=== PATIENT | male | born 1985 ===

== ENCOUNTER 2021-04-29 13:31 | Emergency (ER) | payer OTHER, SELFPAY ==
--- NOTE | ~2021-04-29 | CT_ITS ---
EXAMINATION: CT ANGIOGRAM OF THE CHEST WITH AND WITHOUT CONTRAST (CT PULMONARY ANGIOGRAM FOR PE) CLINICAL INFORMATION: Reason for Exam elevated d-dimer. CP/SOB. Recent Covid COMPARISON: Chest x-ray 04/29/2021 TECHNIQUE: Prior to contrast administration, noncontrast localization images were obtained. Subsequently, multidetector volumetric imaging was performed from the thoracic inlet to below the diaphragms following the administration of 85 mL Omnipaque 350 intravenous contrast. No contrast reaction reported Sagittal, coronal, and MIP oblique sagittal reformatted images were obtained on the CT workstation, uploaded to PACS, and reviewed. This CT examination was performed using dose optimization techniques as appropriate, variously including the following: *Automated exposure control *Adjustment of mA and/or kV according to patient size (this includes techniques or standardized protocols for targeted exams where dose is matched to indication/reason for exam; i.e. extremities or head) *Use of iterative reconstruction technique Total exam dose-length product 536 mGy-cm FINDINGS: QUALITY OF STUDY/CONTRAST BOLUS: Satisfactory. PULMONARY ARTERIES: No central or segmental pulmonary emboli. THORACIC AORTA: No aneurysm or dissection. LUNG: Mild mosaic attenuation of lung parenchyma at the dependent lung bases suggesting small airways disease. There is no bronchiectasis. The central bronchial airways are open. No focal consolidation. No interstitial lung disease. PLEURA: No pleural effusion or pneumothorax. MEDIASTINUM: Normal heart size. No pericardial effusion. No hilar or mediastinal lymphadenopathy. No evidence of septal bowing or right heart strain. Thyroid is slightly heterogeneous. No focal thyroid nodule. CHEST WALL/AXILLA: No axillary or internal mammary lymphadenopathy. OSSEOUS STRUCTURES: No acute or suspicious osseous abnormality. UPPER ABDOMEN: Liver is enlarged. No focal lesions seen in the visualized portions of liver, spleen, pancreas, kidneys or the adrenal gland. No reflux of contrast into the hepatic veins to suggest elevated right heart pressures. CT/CT angio chest PE protocol IMPRESSION: 1. No evidence of pulmonary embolism. 2. There is mild mosaic attenuation of lung parenchyma suggesting small airways disease. No evidence of pneumonia. VTE: negative
--- NOTE | ~2021-04-29 | XR_ITS ---
EXAMINATION: XR CHEST CLINICAL INFORMATION: Shortness of breath, chest pain. COMPARISON: Most recent chest radiograph dated 08/15/2008. TECHNIQUE: Frontal view of the chest was obtained. FINDINGS: Mild hypoinflation of the lungs. No focal airspace consolidation. No pleural effusion or pneumothorax. Unremarkable cardiomediastinal silhouette. XR/XR chest 1V IMPRESSION: No acute cardiopulmonary findings.
[2021-04-29 14:14] VITALS: BP 167/108; PULSE 94; RESP 16; TEMP 35.3; O2SAT 99; BMI 45.4
[2021-04-29 16:13] VITALS: BP 153/96; PULSE 76; RESP 18; TEMP 36.4; O2SAT 97
--- NOTE | 2021-04-29 16:25 | ECG_ITS ---
Test Reason : SHORTNESS OF BREATH Blood Pressure : / mmHG Vent. Rate : 084 BPM Atrial Rate : 084 BPM P-R Int : 156 ms QRS Dur : 098 ms QT Int : 378 ms P-R-T Axes : 022 -37 036 degrees QTc Int : 446 ms Normal sinus rhythm Left axis deviation Cannot rule out Anterior infarct , age undetermined Abnormal ECG No previous ECGs available Referred By: Freda Harris Electronically Signed By:LIBRADO SAXENA
[2021-04-29] MEDS: Albuterol Sulfate 90 MCG 8 GM INHALER 4 PUFF INHALE (16:44)
[2021-04-29 16:45] VITALS: PULSE 80; O2SAT 98
[2021-04-29 17:40] LABS: MANUAL DIFF FLAG NO
[2021-04-29 17:42] LABS: Basophils Percent Auto 0.3 % (0-2); Eosinophils Absolute Auto 0.2 X10*3/uL (0.0-0.4); Eosinophils Percent Auto 1.9 % (0-4); Hematocrit 49.4 % (42-52); Hemoglobin 17.2 g/dl (14.0-18.0); Imm Gran Abs Auto 0.04 X10*3/uL (0.00-0.03); Imm Gran Pct Auto 0.4 % (0.0-0.4); Lymphocytes Absolute Auto 3.1 X10*3/uL (1.2-4.9); Lymphocytes Percent Auto 32.2 % (20-40); Mean Corpuscular HGB Conc 34.8 g/dl (31.0-36.0); Mean Corpuscular Hemoglobin 29.3 pg (27.0-33.0); Mean Corpuscular Volume 84.2 fL (80-98); Mean Platelet Volume 11.4 fL (9.4-12.4); Monocytes Absolute Auto 0.5 X10*3/uL (0.1-1.2); Monocytes Percent Auto 5.1 % (2-11); Neutrophils Absolute Auto 5.7 X10*3/uL (2.0-8.3); Neutrophils Percent Auto 60.1 % (45-73); Platelet Count 188 X10*3/uL (160-400); Red Blood Count 5.87 X10*6/uL (4.60-5.80); White Blood Count 9.5 X10*3/uL (4.8-10.8)
[2021-04-29 17:51] LABS: INTERNATIONAL NORM RATIO 1.1 (0.9-1.1); Prothrombin Time 13.5 SEC (10.8-13.0)
[2021-04-29 17:54] LABS: D Dimer 328 NG/ML
[2021-04-29 18:05] LABS: Alanine Aminotransferase 49 U/L (0-40); Albumin Level 4.2 g/dL (3.5-5.0); Alkaline Phosphatase 113 U/L (39-117); Anion Gap 16 (12-20); Aspartate Amino Transferase 24 U/L (5-37); Bilirubin Direct 0.3 mg/dL (0.0-0.5); Bilirubin Total 1.1 mg/dL (0.0-1.0); Blood Urea Nitrogen 13 mg/dL (9-16); Calcium 9.3 mg/dL (8.4-10.2); Carbon Dioxide 22 mmol/L (22-29); Chloride 102 mmol/L (96-108); Creatinine Clr Calc Pharmacy 149.2; Estimated Glomerular Filt Rate > 60; Glucose Random 299 mg/dL (60-115); Magnesium 1.8 mg/dL (1.6-2.6); Potassium 4.5 mmol/L (3.3-5.1); Sodium 135 mmol/L (135-145); Total Protein 6.9 g/dL (6.5-8.0)
[2021-04-29 18:11] LABS: Troponin-I High Sensitivity < 3.5 ng/L (<3.5-35.0)
--- NOTE | 2021-04-29 18:56 | ED.SOB ---
HPI - SOB/Dyspnea General Chief Complaint: Dyspnea Stated Complaint: DIFF BREATHING Time Seen by Provider: 04/29/21 16:16 Source: patient Mode of arrival: ambulatory History of Present Illness HPI Narrative: 35-year-old male with a past medical history of COVID-19 March 11 presenting to the ED complaining of SOB, chest tightness, sore throat, rhinorrhea, diarrhea intermittently since COVID-19, however worsening today. Admits children recently tested positive for COVID-19 last week. Denies fever, chills, LE edema, recent travel, abdominal pain, nausea/vomiting MD elicited complaint: shortness of breath Related Data Allergies Allergy/AdvReac Type Severity Reaction Status Date / Time clindamycin [CLINDAMYCIN] Allergy Unknown HTN, Unverified 08/18/20 16:10 VOMITING, TINGLING From AUGMENTIN Allergy Unknown UNKNOWN Uncoded 08/18/20 16:10 From Augmentin Allergy Unknown UNKNOWN Uncoded 08/18/20 16:10 Review of Systems Review of Systems: Constitutional: No Fever, No Chills, No Night Sweats, +Fatigue, No Malaise ENT/Mouth: No Ear Pain,+ Nasal Congestion, No Sinus Pain, + sore throat, +Rhinorrhea, No Swallowing Difficulty Eyes: No Eye Pain, No Vision Changes Cardiovascular: +Chest Pain, + SOB, No Dyspnea on Exertion, No Orthopnea, No Edema, No Palpitations Respiratory: +Cough, No Sputum, No Wheezing, No Dyspnea Gastrointestinal: No Nausea, No Vomiting, + Diarrhea, No Abdominal pain Genitourinary: No Dysuria, No Urinary Frequency, No Hematuria Musculoskeletal: No joint pain, +Myalgias, No Joint Swelling Skin: No Skin Lesions, No rash Neuro: No Weakness, No Numbness, No Headache Yes all other systems are reviewed and are negative PMFSH Past Medical History Attestation statement: The following information was validated with the patient. Social History Social History Alcohol intake: never Patient Tobacco Use Status: Current everyday Tobacco user Smoked in Last 30 Days: Yes Use of substances other than those prescribed or required for medical reasons: No Advance Directives: Yes Advance Directives Information Provided: Yes Advance Directives on File: No Physical Exam Vital Signs: Vital Signs: Last Vital Signs Temp 97.4 F 04/29/21 19:57 Pulse 83 04/29/21 19:57 Resp 16 04/29/21 19:57 BP 135/82 04/29/21 19:57 Pulse Ox 97 04/29/21 16:13 Body Mass Index 45.4 Const: General: cooperative, healthy appearing and no acute distress Orientation/consciousness: patient oriented x3 Limitations: no limitations HENMT: Head: Yes normal to inspection and Yes atraumatic Ears: hearing grossly normal bilaterally, external ears normal and TM's normal bilaterally General nose exam: Normal external nose present Face and sinus: Yes normal facial exam Eyes: General: appearance normal, both eyes and all related structures EOM: EOMs intact bilaterally Neck: Neck: Yes normal visual inspection and Yes no meningeal signs Resp: Effort & Inspection: normal respiratory effort Auscultation: clear to auscultation bilaterally, no rales, no rhonchi and no wheezes Cardio: Rate: regular rate Heart sounds: S1 normal heart sound present and S2 normal heart sound present GI: Inspection: Yes normal to inspection Palpation (GI): Soft to palpation, nontender, no guarding and not rigid Skin: Rashes: no rashes Wounds: no wounds Neuro: General: patient oriented x3 and no meningeal signs Gait exam (Neuro): Normal gait present Extrem: General: Yes normal to inspection, Yes no pedal edema and Yes no calf tenderness Course Course Course Narrative: -no leukocytosis, D-dimer elevated to 328 > will obtain CTA to rule out PE -glucose 299, no anion gap. Troponin negative XR chest 1V IMPRESSION: No acute cardiopulmonary findings. 2022-- CT angio chest PE protocol IMPRESSION: 1. No evidence of pulmonary embolism. 2. There is mild mosaic attenuation of lung parenchyma suggesting small airways disease. No evidence of pneumonia. VTE: negative >> results discussed with patient including worrisome signs and symptoms and strict return precautions. Patient was supplied with albuterol inhaler in the ED. Is follow-up with PCP. MDM - SOB/Dyspnea MDM Narrative Medical decision making narrative: 35-year-old male with a past medical history of COVID-19 March 11 presenting to the ED complaining of SOB, chest tightness, sore throat, rhinorrhea, diarrhea intermittently since COVID-19, however worsening today. On exam hypertensive, NAD, nontoxic, lungs CTA, no LE edema or calf tenderness. Concern for post COVID-19 residual symptoms vs COVID-19/viral syndrome vs PE. Rule out pneumonia. Plan: EKG, labs, CXR, albuterol, reassess Medical Records Attestation: I reviewed the patient's medical records. Lab Data Attestation: I reviewed the patient's lab results. Result diagrams: 04/29/21 17:08 04/29/21 17:08 Labs: Lab Results 04/29/21 04/29/21 04/29/21 Range/Units 17:08 17:08 17:08 WBC 9.5 (4.8-10.8) X10*3/uL RBC 5.87 H (4.60-5.80) X10*6/uL Hgb 17.2 (14.0-18.0) g/dl Hct 49.4 (42-52) % MCV 84.2 (80-98) fL MCH 29.3 (27.0-33.0) pg MCHC 34.8 (31.0-36.0) g/dl RDW 12.0 (11.0-16.0) % Plt Count 188 (160-400) X10*3/uL MPV 11.4 (9.4-12.4) fL Immature Gran % (Auto) 0.4 (0.0-0.4) % Neut % (Auto) 60.1 (45-73) % Lymph % (Auto) 32.2 (20-40) % [place] % (Auto) 5.1 (2-11) % Eos % (Auto) 1.9 (0-4) % Baso % (Auto) 0.3 (0-2) % Lymph # (Auto) 3.1 (1.2-4.9) X10*3/uL [place] # (Auto) 0.5 (0.1-1.2) X10*3/uL Eos # (Auto) 0.2 (0.0-0.4) X10*3/uL Baso # (Auto) 0.0 (0.0-0.2) X10*3/uL Abs Immat Gran (auto) 0.04 H (0.00-0.03) X10*3/uL Absolute Neuts (auto) 5.7 (2.0-8.3) X10*3/uL Absolute Nucleated RBC 0.000 (0.0-0.012) X10*3/uL Nucleated RBC % (auto) 0.0 (0.0-0.2) /100WBC PT 13.5 H (10.8-13.0) SEC INR 1.1 (0.9-1.1) APTT 34.0 (24.1-38.0) SEC D-Dimer 328 NG/ML Sodium (135-145) mmol/L Potassium (3.3-5.1) mmol/L Chloride (96-108) mmol/L Carbon Dioxide (22-29) mmol/L Anion Gap (12-20) BUN (9-16) mg/dL Creatinine (0.5-1.4) mg/dL Estim Creat Clear Calc Estimated GFR Random Glucose (60-115) mg/dL Calcium (8.4-10.2) mg/dL Magnesium (1.6-2.6) mg/dL Total Bilirubin (0.0-1.0) mg/dL Direct Bilirubin (0.0-0.5) mg/dL AST (5-37) U/L ALT (0-40) U/L Alkaline Phosphatase (39-117) U/L Troponin I High Sens (<3.5-35.0) ng/L Total Protein (6.5-8.0) g/dL Albumin (3.5-5.0) g/dL 04/29/21 04/29/21 Range/Units 17:08 17:08 WBC (4.8-10.8) X10*3/uL RBC (4.60-5.80) X10*6/uL Hgb (14.0-18.0) g/dl Hct (42-52) % MCV (80-98) fL MCH (27.0-33.0) pg MCHC (31.0-36.0) g/dl RDW (11.0-16.0) % Plt Count (160-400) X10*3/uL MPV (9.4-12.4) fL Immature Gran % (Auto) (0.0-0.4) % Neut % (Auto) (45-73) % Lymph % (Auto) (20-40) % [place] % (Auto) (2-11) % Eos % (Auto) (0-4) % Baso % (Auto) (0-2) % Lymph # (Auto) (1.2-4.9) X10*3/uL [place] # (Auto) (0.1-1.2) X10*3/uL Eos # (Auto) (0.0-0.4) X10*3/uL Baso # (Auto) (0.0-0.2) X10*3/uL Abs Immat Gran (auto) (0.00-0.03) X10*3/uL Absolute Neuts (auto) (2.0-8.3) X10*3/uL Absolute Nucleated RBC (0.0-0.012) X10*3/uL Nucleated RBC % (auto) (0.0-0.2) /100WBC PT (10.8-13.0) SEC INR (0.9-1.1) APTT (24.1-38.0) SEC D-Dimer NG/ML Sodium 135 (135-145) mmol/L Potassium 4.5 (3.3-5.1) mmol/L Chloride 102 (96-108) mmol/L Carbon Dioxide 22 (22-29) mmol/L Anion Gap 16 (12-20) BUN 13 (9-16) mg/dL Creatinine 0.91 (0.5-1.4) mg/dL Estim Creat Clear Calc 149.2 Estimated GFR > 60 Random Glucose 299 H (60-115) mg/dL Calcium 9.3 (8.4-10.2) mg/dL Magnesium 1.8 (1.6-2.6) mg/dL Total Bilirubin 1.1 H (0.0-1.0) mg/dL Direct Bilirubin 0.3 (0.0-0.5) mg/dL AST 24 (5-37) U/L ALT 49 H (0-40) U/L Alkaline Phosphatase 113 (39-117) U/L Troponin I High Sens < 3.5 (<3.5-35.0) ng/L Total Protein 6.9 (6.5-8.0) g/dL Albumin 4.2 (3.5-5.0) g/dL Discharge Plan Discharge Clinical Impression: Post-COVID syndrome Patient Disposition: Home, Self-Care Instructions: COVID-19 (Coronavirus Disease 2019) (ED) Additional Instructions: Your blood work was reassuring today in the ED Your CT scan did not show a blood clot however did show inhaler at home as needed You need to follow-up with a primary care doctor You may return to work Take Tylenol and Motrin at home as needed If you develop constant worsening shortness breath, fever, chills, or productive cough return to the ED Referrals: Physician,None [Primary Care Provider] - 2 days Stand Alone Forms: Work/School Release
[2021-04-29] MEDS: iohexoL 350 MG/ML 100 ML INFUS..BTL IV (19:48)
--- NOTE | 2021-04-29 19:55 | PC.NURSE ---
Patient aware of pending results from CT scan. Sitting in bed with family. Drinking water. Offers no complaints.
[2021-04-29 19:57] VITALS: BP 135/82; PULSE 83; RESP 16; TEMP 36.3
== END 2021-04-29 20:57 | disposition home or self-care (01) ==
PROVIDERS: Physician Assistant; Emergency Provider Internal Medicine
DX: B94.8 Sequelae of other specified infectious and parasitic diseases (principal); J02.9 Acute pharyngitis, unspecified; R09.81 Nasal congestion; R19.7 Diarrhea, unspecified; R07.9 Chest pain, unspecified; I10 Essential (primary) hypertension; F17.210 Nicotine dependence, cigarettes, uncomplicated; Z86.16 Personal history of COVID-19
CPT/HCPCS: 36415; 71045; 71275; 80048; 80076; 83735; 84484; 85025; 85379; 85610; 85730; 93005; 94640; 99284; Q9967

== ENCOUNTER 2022-02-08 11:57 | Outpatient (REF) | payer OTHER, SELFPAY ==
[2022-02-08 14:40] LABS: Cholesterol 116 mg/dL; HDL Cholesterol 27 mg/dL; LDL Cholesterol Calculated 62 mg/dl; Triglycerides 138 mg/dL
== END 2022-02-08 11:58 | disposition home or self-care (01) ==
LOC: HO.WFDLDS 11:57
PROVIDERS: Visit Provider Family Medicine
DX: I25.10 Atherosclerotic heart disease of native coronary artery without angina pectoris (principal)
CPT/HCPCS: 36415; 80061

== ENCOUNTER → 2022-03-05 09:41 | Outpatient (BNVA) | payer OTHER, MEDICAID, SELFPAY | PROVIDERS: PCP Family Medicine; Visit Provider Nurse Practitioner Family | DX: R06.83 Snoring (principal); R40.0 Somnolence; E66.01 Morbid (severe) obesity due to excess calories; Z68.42 Body mass index [BMI] 45.0-49.9, adult | CPT/HCPCS: 99202 ==

== ENCOUNTER → 2022-03-08 11:10 | Outpatient (BNVA) | payer OTHER, MEDICAID, SELFPAY | PROVIDERS: PCP Hospitalist; Referring Provider Family Medicine; Visit Provider Internal Medicine | DX: I25.10 Atherosclerotic heart disease of native coronary artery without angina pectoris (principal); I21.4 Non-ST elevation (NSTEMI) myocardial infarction; I25.2 Old myocardial infarction; I10 Essential (primary) hypertension; R07.2 Precordial pain; E11.9 Type 2 diabetes mellitus without complications; E66.01 Morbid (severe) obesity due to excess calories; F17.210 Nicotine dependence, cigarettes, uncomplicated; Z68.42 Body mass index [BMI] 45.0-49.9, adult; Z95.5 Presence of coronary angioplasty implant and graft; Z88.1 Allergy status to other antibiotic agents; Z88.3 Allergy status to other anti-infective agents; Z88.0 Allergy status to penicillin; Z79.82 Long term (current) use of aspirin; Z79.84 Long term (current) use of oral hypoglycemic drugs | CPT/HCPCS: 93005; 99202 ==

== ENCOUNTER → 2022-05-24 20:57 | Outpatient (REF) | payer OTHER, SELFPAY | LOC: HO.SL 20:57 | PROVIDERS: Visit Provider Nurse Practitioner Family | DX: G47.33 Obstructive sleep apnea (adult) (pediatric) (principal); R06.83 Snoring | CPT/HCPCS: 95810 ==

== ENCOUNTER → 2022-05-29 09:34 | Outpatient (REF) | payer OTHER, SELFPAY ==
--- NOTE | 2022-05-29 09:38 | CA_ITS ---
Transthoracic Echocardiogram Patient (Last, First, Middle): Golden Dickinson, Gender: Male Date of : 1985 Age: 36 Procedure Date: 05/29/2022 Procedure Type: Transthoracic Echocardiogram Location: OP Height: 172.72 cm Weight: 127.01 kg BSA: 2.36 m2 Heart Rate: bpm BP: 136 / 80 mmHg Deputy Director: Referring MD: Mason Duke MD Symptoms: I25.10 - Atherosclerotic heart disease of [place] coronary... Study Quality: Technically Difficult/Contrast ECG Rhythm: Sinus Conclusions: - The left ventricular systolic function is mildly decreased. The visually estimated ejection fraction is between 45-50%. - The apical septum and mid anteroseptal segments are hypokinetic. Findings Procedure Information Contrast agent, definity, is being given per protocol without apparent complications. Left Ventricle Normal left ventricular cavity size. There is severely increased left ventricular wall thickness. The left ventricular systolic function is mildly decreased. The visually estimated ejection fraction is between 45-50%. There is evidence of regional wall motion abnormalities. Diastolic function is normal for age. Wall Motion Rest Echo Findings The apical septum and mid anteroseptal segments are hypokinetic. Atria Both atria are normal in size. Aortic Valve There is a normal trileaflet aortic valve. There is no aortic valve stenosis. There is no aortic valve regurgitation. Mitral Valve The mitral valve appears normal. There is no mitral valve regurgitation. There is no mitral valve stenosis. Pulmonic Valve The pulmonic valve is likely normal. Tricuspid Valve Normal tricuspid valve structure. There is trace tricuspid valve regurgitation. There is no evidence of pulmonary hypertension. Great Vessels There is mild dilatation of the ascending aorta measuring 3.70 cm. Venous The inferior vena cava is normal in size. Pericardium/Pleural There is no evidence of pericardial effusion. Prior Study Comparison No prior study available for comparison. Measurements 2D Linear Measurements IVSd: 1.58 0.6-0.9/0.6-1.0 cm LVIDd: 4.67 3.9-5.3/4.2-5.9 cm LVIDd Index: 1.98 2.4-3.2/2.2-3.1 cm/m2 LVIDs: 2.74 2.0-3.6 cm LVPWd: 1.56 0.7-1.1 cm Ao Root: 3.80 2.1-3.5 cm LA Diam: 4.10 2.7-3.8/3.0-4.0 cm LAIDs Index: 1.74 1.5-2.3 cm/m2 LV Mass: 389.51 67-162/88-224 g LV Mass Index: 165.05 43-95/49-115 g/m2 LVOT Diam: 2.30 3.0+(-)1.3 cm 2D Systolic Function EF 4C: 57.00 >55% EF 2C: 48.00 >55% EF BiP: 53.10 >55% Mitral Valve MV Pk E: 0.95 MV PK A: 0.49 MV Decel Time: 185.00 E/A: 1.90 E'Lateral: 12.10 E'Medial: 8.81 E/E' Med: 10.80 E/E' Lat: 7.90 PHT: 54.00 MVA PHT: 4.07 [place]: 5.15 Aortic Valve AoV Pk Roel: 1.09 AoV Mn Roel: 0.79 AoV VTI: 0.28 AoV Pk Grad: 5.00 Aov Mn Grad: 3.00 FAUSTO Cont.VTI: 3.24 LVOT LVOT Pk Roel: 0.91 LVOT Mn Roel: 0.60 LVOT VTI: 0.22 LVOT Pk Grad: 3.00 LVOT Mn Grad: 2.00 LVOT Diam: 2.30 LVOT Area: 4.15 Diastolic Function MV Pk E: 0.95 MV Pk A: 0.49 E/A: 1.90 E'Medial: 8.81 E/E' Med: 10.80 E' Laterial: 12.10 E/E' Lat: 7.90 Right Ventricle TAPSE (mm): 28.10 TVS' Roel: 11.70 Tricuspid Valve TR Pk Roel: 1.56 TR Pk Grad: 10.00 RA Press: 3.00 RVSP: 13.00 Great Vessels Aorta Ao Root-2D: 3.80 2.0-3.7 cm Ao Asc: 3.70 2.1-3.4 cm Pulmonary Valve PV Pk Roel: 0.96 Peak PV Grad: 4.00 Updated in Other Vendor System with Status of Final Mason Duke MD electronically signed on 05/31/2022 1:41:43 PM with status of Final
== END ==
LOC: HO.CARD 09:34
PROVIDERS: Visit Provider Internal Medicine
DX: I25.10 Atherosclerotic heart disease of native coronary artery without angina pectoris (principal)
CPT/HCPCS: 93306; Q9957

== ENCOUNTER 2022-10-30 08:22 | Outpatient (REF) | payer OTHER, SELFPAY ==
[2022-10-30 10:57] LABS: Appearance Urine Turbid; Color Urine Dark Yellow; Glucose Urine UA Negative (Negative); Leukocyte Esterase Urine Trace (Negative); Nitrite Urine Negative (Negative); PH 5.5 (5.0-9.0); Specific Gravity - Urine >= 1.030 (1.005-1.025); UMIC TRIGGER UA YES; Urine Blood Negative (Negative); Urine Ketones Trace mg/dL (Negative); Urine Protein Trace mg/dL (Neg-Trace)
[2022-10-30 10:59] LABS: Bacteria Urine None Seen (None Seen); Hyaline Casts Urine 0-2 /LPF (0-2); RBC Urine 0-2 /HPF (0-2); Squamous Epithelial Cell Urine 0-2 /HPF (0-2)
[2022-10-30 11:31] LABS: Alanine Aminotransferase 44 U/L (0-40); Albumin Level 4.3 g/dL (3.5-5.0); Alkaline Phosphatase 84 U/L (39-117); Anion Gap 16 (12-20); Aspartate Amino Transferase 22 U/L (5-37); Bilirubin Total 0.9 mg/dL (0.0-1.0); Blood Urea Nitrogen 19 mg/dL (9-16); Calcium 9.4 mg/dL (8.4-10.2); Carbon Dioxide 24 mmol/L (22-29); Chloride 103 mmol/L (96-108); Cholesterol 126 mg/dL; Estimated Glomerular Filt Rate > 60; Glucose Fasting 122 mg/dL (60-99); HDL Cholesterol 29 mg/dL; LDL Cholesterol Calculated 66 mg/dl; Potassium 4.1 mmol/L (3.3-5.1); Sodium 139 mmol/L (135-145); TSH reflex Free T4 1.99 uIU/mL (0.32-4.0); Total Protein 6.8 g/dL (6.5-8.0); Triglycerides 157 mg/dL
[2022-10-30 12:44] LABS: Microalbum/Creatinine Ratio Ur 6.1 ug/mg cr
[2022-10-30 13:14] LABS: Estimated Average Glucose 151 mg/dL; Hemoglobin A1c % 6.9 %
[2022-10-30 15:11] LABS: Prostate Specific Antigen Scr 0.39 ng/mL (<0.05-4.0)
== END 2022-10-30 08:23 | disposition home or self-care (01) ==
LOC: HO.10HDL 08:22
PROVIDERS: Visit Provider Family Medicine
DX: Z00.00 Encounter for general adult medical examination without abnormal findings (principal); I10 Essential (primary) hypertension; R73.01 Impaired fasting glucose; Z12.5 Encounter for screening for malignant neoplasm of prostate
CPT/HCPCS: 36415; 80053; 80061; 81001; 82043; 83036; 84153; 84443

== ENCOUNTER → 2022-11-20 09:49 | Outpatient (BNVA) | payer OTHER, SELFPAY | PROVIDERS: PCP Family Medicine; Referring Provider Family Medicine; Visit Provider Internal Medicine | DX: I25.10 Atherosclerotic heart disease of native coronary artery without angina pectoris (principal); I10 Essential (primary) hypertension; E11.8 Type 2 diabetes mellitus with unspecified complications; E66.01 Morbid (severe) obesity due to excess calories; Z68.42 Body mass index [BMI] 45.0-49.9, adult | CPT/HCPCS: 99212 ==

== ENCOUNTER → 2022-11-27 10:36 | Outpatient (BNVA) | payer OTHER, SELFPAY | PROVIDERS: PCP Family Medicine; Visit Provider Physician Assistant | DX: K21.9 Gastro-esophageal reflux disease without esophagitis (principal); E66.01 Morbid (severe) obesity due to excess calories; Z68.42 Body mass index [BMI] 45.0-49.9, adult; I25.2 Old myocardial infarction; Z79.02 Long term (current) use of antithrombotics/antiplatelets; Z79.899 Other long term (current) drug therapy | CPT/HCPCS: 99202; 99212 ==

== ENCOUNTER 2023-02-01 09:41 | Outpatient (REF) | payer OTHER, SELFPAY ==
--- NOTE | ~2023-02-01 | FL_ITS ---
EXAMINATION: FL BARIUM SWALLOW CLINICAL INFORMATION: Gastroesophageal reflux disease without esophagitis. COMPARISON: None TECHNIQUE: Fluoroscopic assessment of the esophagus was performed in various upright and prone obliquities utilizing thin and thick high density barium contrast material and effervescent granules. A 13 mm barium tablet was also utilized. FINDINGS: There is normal oral bolus control and transfer. Normal posterior tilt of the epiglottis with elevation of the hyoid. No cricopharyngeal abnormality. The 13 mm barium tablet was swallowed without difficulty, freely passing through the esophagus and into the stomach without delay. The esophagus was normal in course, caliber, and contour. There was normal distensibility with no fixed segment of narrowing. No focal mucosal abnormality was identified. Mild esophageal dysmotility was observed, demonstrated by slow clearance of contrast through the esophagus with the patient lying down.. Contrast passed freely across the gastroesophageal junction into the stomach. No significant hiatal hernia. Mild gastroesophageal reflux was observed. FLUOROSCOPY TIME: 1.6 minutes DOSE AREA PRODUCT: 31.988 Gy-cm2 (marmolejo-centimeter squared) FL/FL barium swallow IMPRESSION: Mild gastroesophageal reflux noted. Mild esophageal dysmotility seen.
== END 2023-02-01 09:42 | disposition home or self-care (01) ==
LOC: HO.XRAY 09:41
PROVIDERS: PCP Family Medicine; Visit Provider Physician Assistant
DX: K21.9 Gastro-esophageal reflux disease without esophagitis (principal); E66.01 Morbid (severe) obesity due to excess calories
CPT/HCPCS: 74220

== ENCOUNTER → 2023-06-05 13:06 | Outpatient (BNVA) | payer OTHER, SELFPAY | PROVIDERS: PCP Family Medicine; Visit Provider Internal Medicine | DX: I25.10 Atherosclerotic heart disease of native coronary artery without angina pectoris (principal); I10 Essential (primary) hypertension; E11.8 Type 2 diabetes mellitus with unspecified complications; E66.01 Morbid (severe) obesity due to excess calories; Z68.43 Body mass index [BMI] 50.0-59.9, adult | CPT/HCPCS: 93005; 99212 ==

== ENCOUNTER 2024-01-22 09:52 | Outpatient (AMB) | payer OTHER, SELFPAY ==
[2024-01-22 10:11] VITALS: BP 128/72; PULSE 64; TEMP 36.1; BMI 47.6
--- NOTE | 2024-01-22 10:11 | MHC.PC.OV ---
Vital Signs 01/22/24 10:11 Height 5 ft 7 in Weight 304 lb 4 oz BMI 47.6 BP 128/72 Blood Pressure Location Lt brachial Position Sitting Pulse 64 Pulse Source Pulse Oximeter Temp 97 F Temp Source Oral Intake Visit Reasons: Follow up diabetes Intake Note: Patient is here to follow up with diabetes. Allergies clindamycin [CLINDAMYCIN] Allergy (Severe, Verified 01/22/24 10:12) HTN, VOMITING, TINGLING amoxicillin Allergy (Mild, Verified 01/22/24 10:12) hives From AUGMENTIN Allergy (Intermediate, Uncoded 01/22/24 10:12) hives From Augmentin Allergy (Unknown, Uncoded 01/22/24 10:12) UNKNOWN Tobacco use date assessed: 01/22/24 Dental Screening Dental Screen Date: 01/22/24 Did you have a dental visit in the last 12 months?: Yes Did you have a dental problem in the last 6 months where you did not have access to dental care?: No Was dental information given to patient?: Patient has dentist HPI Follow up diabetes HPI Details 38 y/o male presents to f/u diabetes. A1c today 01/22/24 is 8.2%. He is on metformin 500mg, glipizide 5mg. They report he has not been taking farxiga as his insurance had rejected this. [facility] Medical History (Updated 05/09/23 @ 14:20 by Tejas Mcqueen) Ganglion cyst of left groin Morbid obesity Surgical History No pertinent past surgical history Family History Mother No problems noted. Father Mental health disorder Substance use disorder Social History Housing: Apartment Alcohol intake: never Patient Tobacco Use Status: Current everyday Tobacco user Tobacco use type: Cigarette Cigarettes Per Day: 5 e-Cigarette/Vaping Use: Never Used Second Hand Smoke Exposure: No service: No Current occupational status: employed Current occupational exposures/hazards: No Cognitive needs: No Hearing needs: No Vision needs: No Questionnaire Thrive Questionnaire Date Thrive assessed: 08/23/21 CYNDI-7 AMB Questionnaire CYNDI-7 Date CYNDI - 7 assessed: 10/02/22 Source: Developed by Drs. Santiago Garcia, Toya Henry, Marquez Ramos and colleagues, with an educational tere from [employer]. Review of Systems Const Denies chills, Denies fatigue, Denies fever(s), Denies headache(s) and Denies weakness ENT Denies dizziness and Denies headache(s) Card Denies chest pain, Denies lightheadedness, Denies dyspnea and Denies other (Palpitations) Resp Denies cough, Denies dyspnea, Denies wheezing and Denies other ( shortness of breath) Musc Denies numbness and Denies tingling Neuro Denies dizziness, Denies headache(s), Denies numbness, Denies tingling, Denies paresthesias and Denies weakness Psych Denies anxiety and Denies depression Endo Denies fatigue Aller/Immun Denies wheezing Physical exam (Primary Care) Vital Signs: Last Vital Signs Temp 97 F 01/22/24 10:11 Pulse 64 01/22/24 10:11 BP 128/72 01/22/24 10:11 BMI result Body Mass Index 47.6 Tobacco/Smoking Status: Tobacco use Status Tobacco use date assessed 01/22/24 01/22/24 10:22 Patient Tobacco Use Status Current everyday Tobacco 01/22/24 10:22 Tobacco use type Cigarette 01/22/24 10:22 e-Cigarette/Vaping Use Never Used 01/22/24 10:22 Thrive Assessment: Date of Thrive Assessment Date Thrive assessed 08/23/21 01/22/24 10:22 Const General: no acute distress and well developed Nutritional Appearance: well nourished Orientation/consciousness: patient oriented x3 [facility]: Yes normocephalic and Yes atraumatic Eyes General: appearance normal, both eyes and all related structures Pupils: Equal, round and reactive pupils present EOM: EOMs intact bilaterally Resp Effort & Inspection: normal respiratory effort Auscultation: clear to auscultation bilaterally Cardio Rate: regular rate Rhythm: regular rhythm Heart sounds: S1 normal heart sound present, S2 normal heart sound present, no gallops, no murmurs and no rubs Neuro General: patient oriented x3 and gait normal Cranial nerves: Yes Equal, round and reactive pupils present Psych Affect: normal affect Results AMB Hemoglobin A1c AMB Hemoglobin A1c 8.2 % Last Edit by Lydia Vega CMA on 01/22/24 10:35 Results Reviewed Results Reviewed: Laboratory Last Values Hgb A1c (Clinic) 8.2 % (4.0-6.0) H 01/22/24 10:34 Assessment and Plan Assessment & Plan (1) Type 2 diabetes mellitus with unspecified complications: Code(s): E11.8 - Type 2 diabetes mellitus with unspecified complications Plan: Poorly?controlled?diabetes.??A1c?now?8.2%.??Goal?is?less?than?7.0%. Patient?notes?that?his?insurance?changed?and?he?has?been?unable?to?get?this?medication. He?had?significant?improvements?with?this?medication?and?blood?sugar?was?well?controlled.??Had?also?chosen?this?medication?as?he?has?coronary?artery?disease. Will?get?prior?authorization Continue?metformin?and?glipizide. Follow-up?in?1?month (2) Essential hypertension: Code(s): I10 - Essential (primary) hypertension Plan: Blood?pressure?is?at?goal?of?less?than?130/80 Continue?current?medication Orders: Orders AMB Hemoglobin A1c Today Z13.9 - Encounter for screening, unspecified Microalbumin, Random (w Creat) Today I10 - Essential (primary) hypertension TSH reflex Free T4 Today Z00.00 - Encounter for general adult medical examination without abnormal findings Comprehensive [place]ert[place]. Panel Fast Today Z00.00 - Encounter for general adult medical examination without abnormal findings Lipid Panel Today Z00.00 - Encounter for general adult medical examination without abnormal findings UA and rflx microscopic Today Z00.00 - Encounter for general adult medical examination without abnormal findings Medications: Changed From dapagliflozin propanediol (Farxiga) 5 mg PO QAM E11.65 - Type 2 diabetes mellitus with hyperglycemia, I25.10 - Atherosclerotic heart disease of [place] coronary artery without angina pectoris To dapagliflozin propanediol (Farxiga) 5 mg PO QAM 90 days 90 tabs 3RF E11.65 - Type 2 diabetes mellitus with hyperglycemia, I25.10 - Atherosclerotic heart disease of [place] coronary artery without angina pectoris Refilled metformin 500 mg PO TID 3 months 270 tabs 0RF famotidine 20 mg PO BEDTIME 90 days 30 tabs 3RF blood sugar diagnostic (FreeStyle Lite Strips) Glucose monitoring twice a day and daily as needed 100 ea 3RF E11.65 - Type 2 diabetes mellitus with hyperglycemia glipizide ER 5 mg PO DAILY 30 tabs 2RF Coding Level of Care Code Est Pt Level 3 (60349) Diagnoses Type 2 diabetes mellitus with unspecified complications E11.8 Essential hypertension I10
== END 2024-01-22 11:07 | disposition home or self-care (01) ==
PROVIDERS: PCP Family Medicine; Visit Provider Family Medicine
DX: E11.65 Type 2 diabetes mellitus with hyperglycemia (principal); I10 Essential (primary) hypertension; F17.210 Nicotine dependence, cigarettes, uncomplicated
CPT/HCPCS: 83036; 99213

== ENCOUNTER 2024-02-26 11:36 | Outpatient (AMB) | payer OTHER, SELFPAY ==
[2024-02-26 11:46] VITALS: BP 120/70; PULSE 79; O2SAT 97; BMI 47.5
--- NOTE | 2024-02-26 11:46 | A.OFFPC_ITS ---
Vital Signs 02/26/24 11:46 Height 5 ft 7 in Weight 303 lb 4 oz BMI 47.5 BP 120/70 Blood Pressure Location Lt brachial Position Sitting Pulse 79 Pulse Source Pulse Oximeter Pulse Oximetry (%) 97 Oxygen Delivery Method Room Air Intake Visit Reasons: f/u diabetes Intake Note: Patient is here to follow up on diabe Allergies clindamycin [CLINDAMYCIN] Allergy (Severe, Verified 02/26/24 11:47) HTN, VOMITING, TINGLING amoxicillin Allergy (Mild, Verified 02/26/24 11:47) hives From AUGMENTIN Allergy (Intermediate, Uncoded 02/26/24 11:47) hives From Augmentin Allergy (Unknown, Uncoded 02/26/24 11:47) UNKNOWN Medication List - Last Reconciled 02/26/24 by Talon Lindsey MD aspirin 81 mg PO DAILY 90 days atorvastatin 80 mg PO BEDTIME 90 days blood pressure kit-extra large As directed blood sugar diagnostic (FreeStyle Lite Strips) Glucose monitoring twice a day and daily as needed blood-glucose meter (FreeStyle Lite Meter kit) blood sugar checks twice a day and daily as needed calcium carbonate (Tums) 200 mg PO TID PRN carvedilol 6.25 mg PO BID 90 days dapagliflozin propanediol (Farxiga) 5 mg PO QAM 90 days famotidine 20 mg PO BEDTIME 90 days glipizide ER 5 mg PO DAILY lancets (FreeStyle Lancets) Glucose monitoring b.i.d. and daily p.r.n. lidocaine 5% 1 patch topical DAILY 30 days losartan 50 mg PO DAILY 90 days meclizine 12.5 mg PO TID PRN 10 days metformin 500 mg PO TID 3 months nmrmhecy-ufo-elkjt-vit K-lycop 400-20-370 mcg (Men's 50 Plus Multivitamin) 1 tab PO DAILY nitroglycerin 0.4 mg sublingual Q5M PRN omeprazole 40 mg PO DAILY 30 days Tobacco use date assessed: 01/22/24 HPI f/u diabetes HPI Details 38 y/o male presents to f/u diabetes. Last A1c 05/09/23 5.6%. He is on metformin 500mg t.i.d, Farxiga 5mg and glipizide 5mg. He reports he has switched insurance and states he has been having difficulties with Farxiga due to this. Follows-up with cardiology for atherosclerotic cardiovascular disease. A1c 01/22/24 8.2%. [facility]LY [facility] Medical History (Updated 05/09/23 @ 14:20 by Tejas Mcqueen) Ganglion cyst of left groin Morbid obesity Surgical History No pertinent past surgical history Family History Mother No problems noted. Father Mental health disorder Substance use disorder Social History Housing: Apartment Alcohol intake: never Patient Tobacco Use Status: Current everyday Tobacco user Tobacco use type: Cigarette Cigarettes Per Day: 5 e-Cigarette/Vaping Use: Never Used Second Hand Smoke Exposure: No service: No Current occupational status: employed Current occupational exposures/hazards: No Cognitive needs: No Hearing needs: No Vision needs: No Questionnaire Thrive Questionnaire Date Thrive assessed: 08/23/21 CYNDI-7 AMB Questionnaire CYNDI-7 Date CYNDI - 7 assessed: 10/02/22 Source: Developed by Drs. Santiago Garcia, Toya Henry, Marquez Ramos and colleagues, with an educational tere from [employer]. Review of Systems Const Denies chills, Denies fatigue, Denies fever(s), Denies headache(s) and Denies weakness ENT Denies dizziness and Denies headache(s) Card Denies dyspnea Resp Denies cough, Denies dyspnea, Denies wheezing and Denies other (shortness of breath) Musc Denies numbness and Denies tingling Neuro Denies dizziness, Denies headache(s), Denies numbness, Denies tingling and Denies weakness Psych Denies anxiety and Denies depression Endo Denies fatigue Aller/Immun Denies wheezing Physical exam (Primary Care) Vital Signs: Last Vital Signs Pulse 79 02/26/24 11:46 BP 120/70 02/26/24 11:46 Pulse Ox 97 02/26/24 11:46 Oxygen Delivery Method Room Air 02/26/24 11:46 BMI result Body Mass Index 47.5 Tobacco/Smoking Status: Tobacco use Status Tobacco use date assessed 01/22/24 01/22/24 10:22 Patient Tobacco Use Status Current everyday Tobacco 01/22/24 10:22 Tobacco use type Cigarette 01/22/24 10:22 e-Cigarette/Vaping Use Never Used 01/22/24 10:22 Thrive Assessment: Date of Thrive Assessment Date Thrive assessed 08/23/21 01/22/24 10:22 Const General: well developed; No acute distress Nutritional Appearance: obese morbidly obese Orientation/consciousness: patient oriented x3 HENMT Head: Yes normocephalic and Yes atraumatic Eyes General: appearance normal, both eyes and all related structures Pupils: Equal, round and reactive pupils present EOM: EOMs intact bilaterally Resp Effort & Inspection: normal respiratory effort Neuro General: patient oriented x3 and gait normal Cranial nerves: Yes Equal, round and reactive pupils present Psych Affect: normal affect Assessment and Plan Assessment & Plan (1) Type 2 diabetes mellitus with unspecified complications: Code(s): E11.8 - Type 2 diabetes mellitus with unspecified complications Plan: Diabetes?at?last?check?was?poorly/uncontrolled?after?his?insurance?company?denie d?Farxiga?which?he?had?been?stable?on. He?has?been?unable?to?obtain?this?medication Will?have?MA get?prior?authorization. Patient?has?diabetes?which?was?previously?stable?with?Farxiga.??He?is?also?using ?metformin?and?glipizide.??He?has?coronary?artery?disease?which?is?another?compe lling?reason?to?use?Farxiga. While?awaiting?prior?authorization,?he?will?increase?glipizide?from?5?mg?to?10?m g?daily?and?continue?metformin Will?have?him?return?in?a?month?for?close?follow-up.??I?have?asked?him?to ?let?me?know before?that?visit?if?he?is?unable?to?get?Farxiga (2) Essential hypertension: Code(s): I10 - Essential (primary) hypertension Plan: Blood?pressure?is?controlled Goal?is?less?than?140/90 Continue?current?medication (3) Coronary artery disease: Code(s): I25.10 - Atherosclerotic heart disease of [place] coronary artery without angina pectoris Plan: Stable Coding Level of Care Code Est Pt Level 4 (65693) Diagnoses Type 2 diabetes mellitus with unspecified complications E11.8 Essential hypertension I10 Coronary artery disease I25.10
== END 2024-02-26 12:41 | disposition home or self-care (01) ==
PROVIDERS: PCP Family Medicine; Visit Provider Family Medicine
DX: E11.8 Type 2 diabetes mellitus with unspecified complications (principal); I10 Essential (primary) hypertension; I25.10 Atherosclerotic heart disease of native coronary artery without angina pectoris
CPT/HCPCS: 99214

== ENCOUNTER 2024-06-09 09:08 | Outpatient (AMB) | payer OTHER, SELFPAY ==
--- NOTE | 2024-06-09 09:12 | A.OFFVIS_ITS ---
Vital Signs 06/09/24 09:13 Height 5 ft 7 in Weight 298 lb 15.149 oz BMI 46.8 BP 118/70 Blood Pressure Location Lt brachial Position Sitting Pulse 72 Intake Visit Reasons: 1 yr f/up [employer] Professor Required: No Accompanied by: Spouse Allergies clindamycin [CLINDAMYCIN] Allergy (Severe, Verified 02/26/24 11:47) HTN, VOMITING, TINGLING amoxicillin Allergy (Mild, Verified 02/26/24 11:47) hives From AUGMENTIN Allergy (Intermediate, Uncoded 02/26/24 11:47) hives From Augmentin Allergy (Unknown, Uncoded 02/26/24 11:47) UNKNOWN Medication List - Last Reconciled 06/09/24 by Mason Duke MD aspirin 81 mg PO DAILY 90 days atorvastatin 80 mg PO BEDTIME 90 days blood pressure kit-extra large As directed blood sugar diagnostic (FreeStyle Lite Strips) Glucose monitoring twice a day and daily as needed blood-glucose meter (FreeStyle Lite Meter kit) blood sugar checks twice a day and daily as needed calcium carbonate (Tums) 200 mg PO TID PRN carvedilol 6.25 mg PO BID 90 days famotidine 20 mg PO BEDTIME 90 days glipizide ER 5 mg PO DAILY lancets (FreeStyle Lancets) Glucose monitoring b.i.d. and daily p.r.n. losartan 50 mg PO DAILY 90 days meclizine 12.5 mg PO TID PRN 10 days metformin 500 mg PO TID 3 months ferdapnj-zuj-wzvga-vit K-lycop 400-20-370 mcg (Men's 50 Plus Multivitamin) 1 tab PO DAILY nitroglycerin 0.4 mg sublingual Q5M PRN omeprazole 40 mg PO DAILY 30 days HPI Comments Details: Golden returns for follow-up regarding coronary disease. To recall, he has a history of type 2 diabetes, hypertension, obesity. He had NSTEMI in December 2021. Underwent cardiac catheterization LAD stenting. He states that in the last year, no new concerns. He has been doing fine. Unfortunately has not been able to lose much weight. He states that because of insurance reasons he was not taking medications for a while but now back on everything. [facility] Medical History (Updated 05/09/23 @ 14:20 by Tejas Mcqueen) Ganglion cyst of left groin Morbid obesity Surgical History No pertinent past surgical history Family History Mother No problems noted. Father Mental health disorder Substance use disorder Social History Housing: Apartment Alcohol intake: never Patient Tobacco Use Status: Current everyday Tobacco user Tobacco use type: Cigarette Cigarettes Per Day: 5 e-Cigarette/Vaping Use: Never Used Second Hand Smoke Exposure: No service: No Current occupational status: employed Current occupational exposures/hazards: No Cognitive needs: No Hearing needs: No Vision needs: No Review of Systems Const All systems reviewed & are unremarkable except as noted in HPI and below Denies chills, Denies fatigue, Denies fever(s), Denies weight gain and Denies weight loss Eyes Reports as per HPI and Denies no additional complaints ENT Denies no additional complaints and Reports as per HPI Card Denies chest pain, Denies leg edema, Denies lightheadedness, Denies palpitations, Denies dyspnea on exertion and Denies orthopnea Resp Denies cough and Denies dyspnea on exertion GI Reports melena, Denies hematochezia and Denies change in stool character Reports no additional complaints and Reports as per HPI Musc Denies muscle weakness and Denies radiating pain into limb Skin/Breast Reports system reviewed and no additional complaints, except as documented Neuro Reports no additional complaints and Reports as per HPI Psych Reports no additional complaints and Reports as per HPI Endo Denies fatigue and Denies palpitations Tim/Lymph Reports no additional complaints and Reports as per HPI Aller/Immun Reports no additional complaints and Reports as per HPI Physical Exam Vital Signs: Last Vital Signs Pulse 72 06/09/24 09:13 BP 118/70 06/09/24 09:13 BMI result Body Mass Index 46.8 Const General: comfortable and no acute distress Orientation/consciousness: patient oriented x3 HEENT Other: Unremarkable Head: Yes normal to inspection Neck Neck: Yes normal visual inspection Chest Chest palpation & inspection: normal inspection of the chest Resp Auscultation: clear to auscultation bilaterally Cardio Palpation: normal PMI Heart sounds: S1 normal heart sound present, S2 normal heart sound present, no gallops, no murmurs and no rubs GI Palpation (GI): Soft to palpation Back/Spine/Pelvis Other: unremarkable Skin General skin exam: no rashes or lesions noted Neuro General: patient oriented x3 Extrem General: Yes normal to inspection Psych Mental Status: mental status grossly normal Office Procedures EKG Details: EKG with sinus rhythm at 72/Min; low voltage QRS complexes; old septal infarct; lateral T inversions and overall similar to prior. [id number], Complete Assessment & Plan Assessment & Plan (1) Atherosclerotic cardiovascular disease: Code(s): I25.10 - Atherosclerotic heart disease of [place] coronary artery without angina pectoris Category: Medical Plan: Cardiac catheterization data -12/2021. Mid LAD 100% stenosis- s/p NAYAN. No significant disease elsewhere. [place] [facility] [place]VEF [place] 45-50% and LAD wall motion abnormality. Repe at echocardiogram similar. Continue aspirin. Continue beta-blockers and statins. Lipids are well controlled. Last LDL 66 mg/dL. (2) Type 2 diabetes mellitus with unspecified complications: Code(s): E11.8 - Type 2 diabetes mellitus with unspecified complications Category: Medical Plan: Hemoglobin A1c levels have been up and down. Most recently 8.2%. Prior to that, 5.6%. In the past, as much as 12.6%. He states that due to insurance issues he has not been taking medications intermittently. On glipizide, metformin. (3) Essential hypertension: Code(s): I10 - Essential (primary) hypertension Category: Medical Plan: Continue carvedilol and losartan. Stable. (4) Morbid obesity: Code(s): E66.01 - Morbid (severe) obesity due to excess calories Category: Medical Plan: Again discussed today. He states he was almost 480 lb in the past and by his own attempts has lost almost 180+ lb. He wants to just keep trying himself. Not interested in bariatric referral. Plan Discussed with significant other. Coding Level of Care Code Est Pt Level 4 (26142) Diagnoses Atherosclerotic cardiovascular disease I25.10 Type 2 diabetes mellitus with unspecified complications E11.8 Essential hypertension I10 Morbid obesity E66.01 CPT Codes EKG - CPT: 30536-[id number], Complete ([id number])
[2024-06-09 09:13] VITALS: BP 118/70; PULSE 72; BMI 46.8
== END 2024-06-09 09:33 | disposition home or self-care (01) ==
PROVIDERS: PCP Family Medicine; Visit Provider Internal Medicine
DX: I25.10 Atherosclerotic heart disease of native coronary artery without angina pectoris (principal); E11.8 Type 2 diabetes mellitus with unspecified complications; I10 Essential (primary) hypertension; E66.01 Morbid (severe) obesity due to excess calories
CPT/HCPCS: 93010; 99214

== ENCOUNTER → 2024-06-09 09:08 | Outpatient (BNVA) | payer OTHER, SELFPAY | PROVIDERS: PCP Family Medicine; Visit Provider Internal Medicine | DX: I25.10 Atherosclerotic heart disease of native coronary artery without angina pectoris (principal); E11.8 Type 2 diabetes mellitus with unspecified complications; I10 Essential (primary) hypertension; E66.01 Morbid (severe) obesity due to excess calories; Z68.42 Body mass index [BMI] 45.0-49.9, adult; Z79.82 Long term (current) use of aspirin; Z79.899 Other long term (current) drug therapy | CPT/HCPCS: 93005; 99212 ==

== ENCOUNTER 2024-12-22 08:40 | Outpatient (AMB) | payer OTHER, SELFPAY ==
--- NOTE | 2024-12-22 08:41 | A.OFFPC_ITS ---
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 A1c was over 8 at last check. He is and he had not been able to get Farxiga due to insurance. We had tried working on a prior authorization. Patient says that he realize that the checks he was being for insurance were being returned and he did not insurance at all. He says he has been taking metformin 500 mg t.i.d. and glipizide 5 mg q.a.m. as prescribed and was pain for these out of pocket. [facility], [facility] Medical History (Updated 12/22/24 @ 09:20 by Talon Lindsey MD) Ganglion cyst of left groin Morbid obesity Surgical History No pertinent past surgical history Family History Mother No problems noted. Father Mental health disorder Substance use disorder Social History Housing: Apartment Alcohol intake: never Patient Tobacco Use Status: Current everyday Tobacco user Tobacco use type: Cigarette Cigarettes Per Day: 5 e-Cigarette/Vaping Use: Never Used Second Hand Smoke Exposure: No service: No Current occupational status: employed Current occupational exposures/hazards: No Cognitive needs: No Hearing needs: No Vision needs: No Questionnaire PHQ-9 Over the last 2 weeks, how often have you been bothered by any of the following problems? 90246 - PHQ-9 Billing: Patient declined-do not bill Source: Developed by Drs. Santiago Garcia, Toya Henry, Marquez Ramos and colleagues, with an educational tere from [employer]. Thrive Questionnaire Date Thrive assessed: 08/23/21 CYNDI-7 AMB Questionnaire CYNDI-7 Date CYNDI - 7 assessed: 10/02/22 Source: Developed by Drs. Santiago Garcia, Toya Henry, Marquez Ramos and colleagues, with an educational tere from [employer]. Review of Systems Const Denies chills, Denies fatigue, Denies fever(s), Denies headache(s) and Denies weakness ENT Denies dizziness and Denies headache(s) Card Denies dyspnea Resp Denies cough, Denies dyspnea, Denies wheezing and Denies other (shortness of breath) Musc Denies numbness and Denies tingling Neuro Denies dizziness, Denies headache(s), Denies numbness, Denies tingling and Denies weakness Psych Denies anxiety and Denies depression Endo Denies fatigue Aller/Immun Denies wheezing Physical exam (Primary Care) Vital Signs: Last Vital Signs Temp 96.1 F L 12/22/24 08:45 Pulse 76 12/22/24 08:45 Resp 14 12/22/24 08:45 BP 158/80 H 12/22/24 08:45 Pulse Ox 99 12/22/24 08:45 Oxygen Delivery Method Room Air 12/22/24 08:45 BMI result Body Mass Index 47.8 Tobacco/Smoking Status: Tobacco use Status Tobacco use date assessed 12/22/24 12/22/24 08:48 Patient Tobacco Use Status Current everyday Tobacco 12/22/24 08:41 Tobacco use type Cigarette 12/22/24 08:41 e-Cigarette/Vaping Use Never Used 12/22/24 08:41 Thrive Assessment: Date of Thrive Assessment Date Thrive assessed 08/23/21 12/22/24 08:41 Const General: well developed; No acute distress Nutritional Appearance: well nourished Orientation/consciousness: patient oriented x3 HENMT Head: Yes normocephalic and Yes atraumatic Eyes General: appearance normal, both eyes and all related structures Pupils: Equal, round and reactive pupils present EOM: EOMs intact bilaterally Resp Effort & Inspection: normal respiratory effort Neuro General: patient oriented x3 and gait normal Cranial nerves: Yes Equal, round and reactive pupils present Psych Affect: normal affect Results AMB Hemoglobin A1c AMB Hemoglobin A1c 9.6 % Last Edit by Michelle Miller MA on 12/22/24 08:58 Results Reviewed Results Reviewed: Laboratory Last Values Hgb A1c (Clinic) 9.6 % (4.0-6.0) H 12/22/24 08:54 Coding Level of Care Code Est Pt Level 4 (02451) Diagnoses Type 2 diabetes mellitus with unspecified complications E11.8 Coronary artery disease I25.10 Essential hypertension I10 Cyst of skin L72.9 Assessment & Plan Assessment & Plan (1) Type 2 diabetes mellitus with unspecified complications: Code(s): E11.8 - Type 2 diabetes mellitus with unspecified complications Category: Medical Plan: A1c?continues?to?climb?as?patient?has?only?been?on?metformin?and?glipizide?and?w as?unable?to?get?additional?medication. He?says?he?now?has?insurance. Given?that?he?also?has?coronary?artery ?disease,?will?work?with?him?more?aggressively?to?get?his?A1c?below?7%. Continue?metformin?glipizide?as?prescribed Start?Lantus?can?units?q.p.m. (2) Coronary artery disease: Code(s): I25.10 - Atherosclerotic heart disease of [place] coronary artery without angina pectoris Category: Medical Plan: Maintain?good?blood?pressure?and?blood?sugar?control. Follow-up?with?Cardiology (3) Essential hypertension: Code(s): I10 - Essential (primary) hypertension Category: Medical Plan: Blood?pressure?improves?with?relaxation. Goal?is?less?than?130/80 Continue?current?medications (4) Cyst of skin: Code(s): L72.9 - Follicular cyst of the skin and subcutaneous tissue, unspecified Category: Medical Plan: Raised cyst of skin under his nose. Will return to [facility] Orders: Orders AMB Hemoglobin A1c Today E11.8 - Type 2 diabetes mellitus with unspecified complications Medications: New insulin glargine (Lantus Solostar U-100 Insulin) 10 units (0.1 mL) subcut QPM 30 days 3 mL 3RF
[2024-12-22 08:45] VITALS: BP 158/80; PULSE 76; RESP 14; TEMP 35.6; O2SAT 99; BMI 47.8
[2024-12-22 09:13] VITALS: BP 126/80
== END 2024-12-22 09:21 | disposition home or self-care (01) ==
PROVIDERS: PCP Family Medicine; Visit Provider Family Medicine
DX: E11.8 Type 2 diabetes mellitus with unspecified complications (principal); I25.10 Atherosclerotic heart disease of native coronary artery without angina pectoris; I10 Essential (primary) hypertension; L72.9 Follicular cyst of the skin and subcutaneous tissue, unspecified

== ENCOUNTER → 2024-12-22 08:40 | Outpatient (BNVA) | payer OTHER, SELFPAY | PROVIDERS: PCP Family Medicine; Visit Provider Family Medicine | DX: E11.8 Type 2 diabetes mellitus with unspecified complications (principal); I25.10 Atherosclerotic heart disease of native coronary artery without angina pectoris; I10 Essential (primary) hypertension; L72.9 Follicular cyst of the skin and subcutaneous tissue, unspecified | CPT/HCPCS: 83036; 99212 ==

== ENCOUNTER 2025-01-27 09:46 | Outpatient (AMB) | payer OTHER, SELFPAY ==
--- NOTE | 2025-01-27 09:56 | MHC.PC.OV ---
Vital Signs 01/27/25 09:59 Height 5 ft 7 in Weight 303 lb 6 oz BMI 47.5 BP 120/74 Blood Pressure Location Lt brachial Position Sitting Respiration 16 Pulse 88 Pulse Source Pulse Oximeter Temp 97.8 F Temp Source Oral Pulse Oximetry (%) 97 Oxygen Delivery Method Room Air Intake Visit Reasons: f/u DM & cyst of skin Intake Note: follow up on dm and facial cyst Network Infrastructure Architect Required: No Allergies clindamycin [CLINDAMYCIN] Allergy (Severe, Verified 01/27/25 09:57) HTN, VOMITING, TINGLING amoxicillin Allergy (Mild, Verified 01/27/25 09:57) hives From AUGMENTIN Allergy (Intermediate, Uncoded 02/26/24 11:47) hives From Augmentin Allergy (Unknown, Uncoded 02/26/24 11:47) UNKNOWN Medication List - Last Reconciled 01/27/25 by Talon Lindsey MD aspirin 81 mg PO DAILY 90 days atorvastatin 80 mg PO BEDTIME 90 days blood pressure kit-extra large As directed blood sugar diagnostic (FreeStyle Lite Strips) Glucose monitoring twice a day and daily as needed blood-glucose meter (FreeStyle Lite Meter kit) blood sugar checks twice a day and daily as needed calcium carbonate (Tums) 200 mg PO TID PRN carvedilol 6.25 mg PO BID 90 days famotidine 20 mg PO BEDTIME 90 days glipizide ER 5 mg PO DAILY insulin glargine (Lantus Solostar U-100 Insulin) 10 units (0.1 mL) subcut QPM 30 days lancets (FreeStyle Lancets) Glucose monitoring b.i.d. and daily p.r.n. losartan 50 mg PO DAILY 90 days meclizine 12.5 mg PO TID PRN 10 days metformin 500 mg PO TID 3 months dyelycqz-gid-iezrs-vit K-lycop 400-20-370 mcg (Men's 50 Plus Multivitamin) 1 tab PO DAILY nitroglycerin 0.4 mg sublingual Q5M PRN omeprazole 40 mg PO DAILY 30 days pen needle, diabetic (Easy Comfort Pen [place]) As directed Tobacco use date assessed: 12/22/24 Dental Screening Dental Screen Date: 01/22/24 HPI f/u DM & cyst of skin HPI Details 39 y/o male presents to f/u diabetes. Last A1c 12/22/24 9.6%. He is on glipizide 5mg, insulin glargine 10 units, metformin 500mg t.i.d. A1c today 9.3%. Has complaints of a facial cyst. Notes he has sleep apnea but is currently not being treated. [facility], [facility] Medical History (Updated 01/27/25 @ 10:23 by Tejas Mcqueen) Ganglion cyst of left groin Morbid obesity Surgical History No pertinent past surgical history Family History Mother No problems noted. Father Mental health disorder Substance use disorder Social History Housing: Apartment Alcohol intake: never Patient Tobacco Use Status: Current everyday Tobacco user Tobacco use type: Cigarette Cigarettes Per Day: 5 e-Cigarette/Vaping Use: Never Used Second Hand Smoke Exposure: No service: No Current occupational status: employed Current occupational exposures/hazards: No Cognitive needs: No Hearing needs: No Vision needs: No Questionnaire PHQ-9 Over the last 2 weeks, how often have you been bothered by any of the following problems? 1. Little interest or pleasure in doing things: not at all 2. Feeling down, depressed, or hopeless: not at all 3. Trouble falling or staying asleep, or sleeping too much: not at all 4. Feeling tired or having little energy: not at all 5. Poor appetite or overeating: not at all 6. Feeling bad about yourself - or that you are a failure or have let yourself or your family down: not at all 7. Trouble concentrating on things, such as reading the newspaper or watching television: not at all 8. Moving or speaking so slowly that other people could have noticed. Or the opposite - being so fidgety or restless that you have been moving around a lot more than usual: not at all 9. Thoughts that you would be better off or of hurting yourself in some way: not at all Total score: 0 Source: Developed by Drs. Santiago Garcia, Toya Henry, Marquez Ramos and colleagues, with an educational tere from [employer]. Thrive Questionnaire Date Thrive assessed: 08/23/21 I am a: Patient What is your living situation today?: I have a steady place to live Within the past 12 months, did the food you bought not last and you didn't have the money to get more?: I choose not to answer this question Within the past 12 months, did you worry whether your food would run out before you got money to buy more?: I choose not to answer this question Do you have trouble paying for medicines?: I choose not to answer this question Do you have trouble getting transportation to medical appointments?: I choose not to answer this question Do you have trouble paying your heating and electricity bill?: I choose not to answer this question Do you have trouble taking care of your child, family member or friend?: I choose not to answer this question Do you have trouble with day-to-day activities such as bathing, preparing meals, shopping, managing finances, etc.?: I choose not to answer this question Are you currently unemployed and looking for a job?: No Are you interested in more education?: No Please select the resources that you would like help with: None Currently or been in a relationship where the following occur: No concerns reported THRIVE Score: 0 AUDIT C Alcohol Use Questionnaire (AUDIT-C) 1. How often do you have a drink containing alcohol?: Never Total Score: 0 CYNDI-7 AMB Questionnaire CYNDI-7 Date CYNDI - 7 assessed: 10/02/22 Feeling nervous, anxious, or on edge: 0 = Not at all Not being able to stop or control worryin = Not at all Worrying too much about different things: 0 = Not at all Trouble relaxin = Not at all Being so restless that it is hard to sit still: 0 = Not at all Becoming easily annoyed or irritable: 0 = Not at all Feeling afraid as if something awful might happen: 0 = Not at all Total CYNDI-7 score (0-4 normal; 5-9 mild; 10-14 moderate; 15-21 severe): 0 Source: Developed by Drs. Santiago Garcia, Toya Henry, Marquez Ramos and colleagues, with an educational tere from [employer]. Physical exam (Primary Care) Vital Signs: Last Vital Signs Temp 97.8 F 01/27/25 09:59 Pulse 88 01/27/25 09:59 Resp 16 01/27/25 09:59 BP 120/74 01/27/25 09:59 Pulse Ox 97 01/27/25 09:59 Oxygen Delivery Method Room Air 01/27/25 09:59 BMI result Body Mass Index 47.5 Tobacco/Smoking Status: Tobacco use Status Tobacco use date assessed 12/22/24 01/27/25 10:02 Patient Tobacco Use Status Current everyday Tobacco 01/27/25 10:02 Tobacco use type Cigarette 01/27/25 10:02 e-Cigarette/Vaping Use Never Used 01/27/25 10:02 PHQ-9: PHQ-9 Score PHQ-9: Total score 0 01/27/25 10:02 Thrive Assessment: Date of Thrive Assessment Date Thrive assessed 08/23/21 01/27/25 10:02 Currently or been in a relationship where the following occur: No concerns reported Const Nutritional Appearance: obese morbidly obese Results AMB Hemoglobin A1c AMB Hemoglobin A1c 9.3 % Last Edit by Mirela Anguiano CMA on 01/27/25 10:05 Results Reviewed Results Reviewed: Laboratory Last Values Hgb A1c (Clinic) 9.3 % (4.0-6.0) H 01/27/25 10:04 Coding Level of Care Code Est Pt Level 4 (74172) Diagnoses Type 2 diabetes mellitus with unspecified complications E11.8 Cyst of skin L72.9 Sleep apnea G47.30 Neoplasm of uncertain behavior of skin D48.5 Assessment & Plan Assessment & Plan (1) Type 2 diabetes mellitus with unspecified complications: Code(s): E11.8 - Type 2 diabetes mellitus with unspecified complications Category: Medical Plan: A1c?still?very?high?at?9.3%?in?patient?with?diabetes?and?coronary?artery?disease. He?will?continue?metformin?and?glipizide?as?prescribed. Will?increase?Lantus?from?10?units?daily?to?16?units?daily?today. He?will?increase?his?Lantus?by?2?units for?every?2?days?that?his?morning?blood?sugars?are?above?150. He?will?cap?Lantus?at?a?maximum?of?24?units until?our?next?visit?in?a?month. He?will?continue?working?at?diet?and?exercise. If?blood?sugars?begin?going?below?100?prior?to?her?next?visit?he?will?ease?by?2?units. (2) Cyst of skin: Code(s): L72.9 - Follicular cyst of the skin and subcutaneous tissue, unspecified Category: Medical Plan: Patient?said?he?tried?to?remove?growth?under?his?nose?himself.??It?has?grown?back?in?his?having?rapid?change. Clearly?neoplasm?of?uncertain?behavior. Referring?to?Dermatology (3) Sleep apnea: Code(s): G47.30 - Sleep apnea, unspecified Category: Medical Plan: Known?history?of?sleep?apnea?in?patient?with?morbid?obesity?and?coronary?artery?disease. Symptomatic?and?also?having?issues?with?loss?of?urine Stressed?the?importance?using?CPAP?machine.??Needs follow-up?with?sleep?medicine?to?help?him?with?a?machine?and?adjustment?tubing. Stressed?the?importance?of?sleeping?on?side?while?awaiting?referral?to?Sleep?Medicine. (4) Neoplasm of uncertain behavior of skin: Code(s): D48.5 - Neoplasm of uncertain behavior of skin Category: Medical Plan: As above Orders: Orders AMB Hemoglobin A1c Today E11.8 - Type 2 diabetes mellitus with unspecified complications Referrals Sleep Medicine Referral G47.30 - Sleep apnea, unspecified, I25.10 - Atherosclerotic heart disease of [place] coronary artery without angina pectoris Dermatology Referral D48.5 - Neoplasm of uncertain behavior of skin Medications: Changed From insulin glargine (Lantus Solostar U-100 Insulin) 10 units (0.1 mL) subcut QPM 30 days 3 mL 3RF To insulin glargine (Lantus Solostar U-100 Insulin) 24 units (0.24 mL) subcut QPM 9 mL 3RF 30 days
[2025-01-27 09:59] VITALS: BP 120/74; PULSE 88; RESP 16; TEMP 36.6; O2SAT 97; BMI 47.5
== END 2025-01-27 10:23 | disposition home or self-care (01) ==
PROVIDERS: PCP Family Medicine; Visit Provider Family Medicine
DX: E11.8 Type 2 diabetes mellitus with unspecified complications (principal); L72.9 Follicular cyst of the skin and subcutaneous tissue, unspecified; G47.30 Sleep apnea, unspecified; D48.5 Neoplasm of uncertain behavior of skin

== ENCOUNTER → 2025-01-27 09:46 | Outpatient (BNVA) | payer OTHER, SELFPAY | PROVIDERS: PCP Family Medicine; Visit Provider Family Medicine | DX: E11.8 Type 2 diabetes mellitus with unspecified complications (principal); G47.30 Sleep apnea, unspecified; D48.5 Neoplasm of uncertain behavior of skin; L72.9 Follicular cyst of the skin and subcutaneous tissue, unspecified | CPT/HCPCS: 83036; 99212 ==